=== PATIENT | female | born 1975 | race American Indian/Alaskan Native ===

== ENCOUNTER 2018-04-05 09:31 | Day surgery (SDC) | payer BC ==
[2018-04-05] MEDS ORDERED: DEMEROL IV PRN (09:50)
[2018-04-05] MEDS ORDERED: DILAUDID IV PRN (09:50)
[2018-04-05] MEDS ORDERED: ZOFRAN IV PRN (09:50)
[2018-04-05] MEDS ORDERED: VERSED IV NR (10:00)
[2018-04-05] MEDS ORDERED: LACTATED RINGERS 1,000 ML IV SCH ×2 (10:00→12:00)
--- NOTE | 2018-04-05 10:28 | Anesthesia Consultation ---
Anesthesia Consult and Med Hx Date of service: 04/05/18 - Airway Anesthetic Teeth Evaluation: Good ROM Head & Neck: Adequate Mental/Hyoid Distance: Adequate Mallampati Class: Class II - Pulmonary Exam CTA: Yes - Cardiac Exam Cardiac Exam: RRR - Pre-Operative Health Status ASA Pre-Surgery Classification: ASA3 Proposed Anesthetic Plan: General - Pre-Anesthesia Comment Pre-Anesthesia Comments: cardiomyopathy/ has been cleared/ etomidate or low dose propofol induction - Cardiovascular System Hx Heart Murmur: Yes (post cardiomyopathy 5 years ago/no meds) - Central Nervous System Hx Psychiatric Problems: No - Other Systems Hx Alcohol Use: Yes (Occas) Hx Cancer: No
--- NOTE | 2018-04-05 10:29 | Anesthesia Day of Surgery ---
Anesthesia Day of Surgery - Day of Surgery Patient Examined: Yes Patient H&P Reviewed: Yes Patient is NPO: Yes Beta Blockers: No Cardiac Clearance: No Pulmonary Clearance: No
--- NOTE | 2018-04-05 10:38 | History and Physical Report ---
History of Present Illness Date of examination: 04/05/18 Date of admission: 04/05/2018 Chief complaint: tubal ligation History of present illness: Pt presents for tubal ligation. All risk, benefits,and alternatives were d/w pt and questions were addressed and answered. Consent forms signed in the office for pt to present on day of surgery. Visit Type: Pre-Op Primary Provider: Lita Grady MD CC: no complaints. History of Present Illness: pt presents for pre op visit BTL, and Discuss IUD removal.....mariela All risk/benefits/alternatives were d/w pt and questions were addressed and answered. Consents signed and given to pt to present on day of surgery. Vital Signs: Patient Profile: 42 Years Old Female Height: 60.5 inches (153.67 cm) Weight: 151 pounds BMI: 29.00 BP sittin / 80 (left arm) Current Method of Contraception: IUD [OB-New Pt-Past Preg Hx-CCC] SENIOR MAINFRAME PROGRAMMER ANALYST History Uterine Surgery (not C/S): negative Operations: Negative Past Surgical History teeth Denies any prior history of complications from anesthesia. Abnormal PAP: positive, colpo nl pap here 03/2012 Uterine Anomaly: negative CARO Exposure: negative Infertility: negative Infection History HIV Risk Eval: no Personal hx. of genital herpes: no Partner hx. of genital herpes: no Hx of STD: none Active Medications (reviewed today): MIRENA (52 MG) 20 MCG/24HR INTRAUTERINE INTRAUTERINE DEVICE (LEVONORGESTREL) Current Allergies (reviewed today): No known allergies Past Medical History: Reviewed history from 11/09/2012 and no changes required: Heart murmur denies any problems Past Surgical History: Reviewed history from 11/09/2012 and no changes required: Negative Past Surgical History teeth Denies any prior history of complications from anesthesia. Family History Summary: Reviewed history Last on 06/11/2016 and no changes required:04/05/2018 General Comments - FH: No Family History of Breast Cancer No Family History of Colon Cancer No Family History of Ovarian Cancer No Family History of DVT/PE on OCP Social History: Reviewed history from 05/29/2015 and no changes required: Patient is single Smoking History: Patient has never smoked. Risk Factors: Smoked Tobacco Use: Never smoker Smokeless Tobacco Use: Never Drug use: no HIV high-risk behavior: no Alcohol use: no Exercise: yes Seatbelt use: 100 % [[facility]] [Labs In-House] Physical Exam Appearance: well developed, well nourished, no acute distress Other Exams Breast exam: no masses or nipple discharge Abdomen: soft, non-tender, no masses, bowel sounds normal Skin: no ulcers, xanthomas Lymph: no cervical, axillary, or inguinal adenopathy Extremities: normal alignment, no joint enlargement, crepitus, masses or tenderness; normal tone and strength Genitourinary Exam Vulva: normal, no lesions or discharge Urethral meatus: normal size and location, no lesions or discharge Urethra: no discharge Bladder: no cystocele Vagina: normal appearance, no discharge, lesions. No evidence of cystocele or rectocele. Cervix: normal appearance, no lesions, no discharge Uterus: normal position, midline, mobile Past History Past Medical History: other (see hpi) Past Surgical History: other (see hpi) SENIOR MAINFRAME PROGRAMMER ANALYST History: other (see hpi) Family/Genetic History: other (see hpi) Social history: other (see hpi) - Obstetrical History : 3 Medications and Allergies Allergies Allergy/AdvReac Type Severity Reaction Status Date / Time No Known Allergies Allergy Unverified 04/03/18 16:07 Home Medications Medication Instructions Recorded Confirmed Last Taken Type No Known Home Medications [No 03/27/18 04/03/18 Unknown History Reported Home Medications] Active Meds: Active Medications Hydromorphone HCl (Dilaudid) 0.5 mg IV Q10MIN PRN PRN Reason: Pain , Severe (7-10) Stop: 04/05/18 20:00 Lactated Ringer's (Lactated Ringers) 1,000 mls @ 100 mls/hr IV DIRECT ROSS Lactated Ringer's (Lactated Ringers) 1,000 mls @ 100 mls/hr IV DIRECT ROSS Meperidine HCl (Demerol) 25 mg IV ONCE PRN PRN Reason: Shivering Stop: 04/05/18 20:00 Midazolam HCl (Versed) 2 mg IV PREOP NR Stop: 04/05/18 23:59 Ondansetron HCl (Zofran) 4 mg IV ONCE PRN PRN Reason: Nausea And Vomiting Stop: 04/05/18 20:00 - Physical Exam Cardiovascular: Normal S1, Normal S2 Lungs: Positive: Normal air movement Abdomen: Positive: normal appearance, soft. Negative: distention, tenderness, guarding Genitourinary (Female): Positive: other (deferred unitl EUA) Results All other labs normal. Assessment and Plan - Patient Problems (1) Sterilization Current Visit: Yes Status: Acute Plan to address problem: -admit -bilateral tubal ligation
[2018-04-05] MEDS ORDERED: DIPRIVAN 10 MG/ML IV ONE (11:00)
[2018-04-05] MEDS ORDERED: ZEMURON IV ONE (11:00)
[2018-04-05] MEDS ORDERED: TORADOL ONE (11:00)
[2018-04-05] MEDS ORDERED: ANCEF/STERILE WATER 2 GM/20 ML 2 GM/20 ML SYRINGE IV NR (11:00)
[2018-04-05] MEDS ORDERED: XYLOCAINE MPF 2% ONE (11:00)
[2018-04-05] MEDS ORDERED: ROBINUL ONE (11:00)
[2018-04-05] MEDS ORDERED: DECADRON ONE (11:00)
[2018-04-05] MEDS ORDERED: ZOFRAN ONE (11:00)
[2018-04-05] MEDS ORDERED: BLOXIVERZ ONE (11:00)
[2018-04-05] MEDS ORDERED: SUBLIMAZE ONE (11:04)
[2018-04-05] MEDS ORDERED: MARCAINE 0.5% INFILTRATI ONE ×2 (12:10→12:40)
[2018-04-05] MEDS ORDERED: AMIDATE IV ONE (12:45)
--- NOTE | 2018-04-05 12:54 | Operative Report ---
Operative Report Operative Report: Date of procedure: 04/05/2018 Pre-operative diagnosis: Desires permanent sterilization Post-operative diagnosis: Same Procedure name(s): Laparoscopic bilateral salpingectomy Removal of Mirena IUD Lysis of adhesions Surgeon: Dr. Grijalva Invoicing Specialist: Certified surgical scrub health information assistant Anesthesia: Gen. endotracheal anesthesia EBL: Minimal Urine output: 150 mL of urine out prior to the onset of procedure via straight catheterization clear urine. Fluids: 550 mL Findings: Grossly normal fallopian tubes and ovaries bilaterally. Adhesions of the omentum to the anterior uterus and right adnexa. Adhesions of the left adnexa to the posterior portion of the uterus. Indications: Patient desires from sterilization and removal of intrauterine device. All risks benefits and alternatives were discussed with the patient. Consents were signed and placed on the chart. Procedure: Patient was taken to the operating room and which she was placed under general endotracheal anesthesia. Patient was then prepped and draped in sterile fashion and placed in dorsal lithotomy position in Rosalio stirrups. Her catheterization was done with clear urine noted. Attention was then turned to the vagina in which a Humi uterine manipulator was placed. Attention was then turned to the umbilicus and which an infraumbilical incision was made with the scalpel 5mm trocar was placed using direct visualization with the camera. Abdomen was then insufflated with gas. Under direct visualization a second 8 mm trocar and an additional 5 mm trocar were placed in the left lower abdomen. Filmy adhesions of the left adnexa to the posterior portion of the uterus were lysed using the LigaSure device. The left fallopian tube was then grasped with the grasper was elevated cauterized and transected using the LigaSure device. Portion of the left fallopian tube was passed off to pathology. Attention was then turned to the right fallopian tube with the procedure was then repeated. The filmy adhesions of the omentum to the right adnexa were lysed with excellent hemostasis noted. Portion of the right fallopian tube was passed off to pathology. After tubal ligation was completed all instruments were removed from the abdomen under direct visualization. All gas was also released from the abdomen. The subcuticular fat was reapproximated with 2-0 Vicryl. The skin was approximated with 4-0 Monocryl in a subcuticular stitch. The patient tolerated procedure well. Sponge, lap, and needle counts were all correct x3 the patient was taken to the recovery room awake and in stable condition.
--- NOTE | 2018-04-05 12:55 | Discharge Summary ---
Providers - Providers Date of discharge: 04/05/18 Attending physician: ISA ALLEN Primary care physician: BOXING MACHINE OPERATOR Hospitalization Reason for admission: other (laparoscopic tuba ligation) Procedure: other (laparoscopic tubal ligation) Procedure details: See operative report Incision: dry, intact Discharge diagnosis: other (status post removal of Mirena IUD; status post bilateral salpingectomy) Hospital course: Patient was admitted for above-stated procedure. Once the structures criteria had been met in the PACU patient was discharged home. Patient will follow-up in office in 1 week for postop evaluation. Prescriptions were placed on the chart for discharge. Condition at discharge: Good Disposition: DC-01 TO HOME OR SELFCARE - Discharge Diagnoses (1) Sterilization Status: Acute Plan - Discharge Medications Prescriptions: Ibuprofen 800 mg PO Q6HR #30 tablet oxyCODONE /ACETAMINOPHEN [Percocet 5/325] 1 tab PO Q4HR #30 tab - Provider Discharge Summary Activity: routine, no sex for 6 weeks, no heavy lifting 4 weeks Diet: routine Instructions: routine Additional instructions: [] Smoking cessation referral if applicable(refer to patient education folder for contact #) [] Refer to [facility] Booklet Call your doctor immediately for: * Fever > 100.5 * Heavy vaginal bleeding ( >1 pad per hour) * Severe persistent headache * Shortness of breath * Reddened, hot, painful area to leg or breast * Drainage or odor from incision. * Keep incision clean and dry at all times and follow doctor's instructions regarding bathing/showering - Follow up plan Follow up: PRIMARY CARE, [Primary Care Provider] - 7 Days
--- NOTE | 2018-04-05 13:24 | Post Anesthesia Evaluation ---
- Post Anesthesia Evaluation Patient Participated: Yes Airway Patent: Yes Stable Respiratory Function: Yes Nausea/Vomiting: No Temp > 96.8F: Yes Pain Manageable: Yes Adequeate Hydration: Yes Anesthesia Complications: No Block Receding Appropriately: Not Applicable Patient on Ventilator: No
[2018-04-05 14:02] VITALS: BP 124/64
== END 2018-04-05 09:32 | disposition home or self-care (01) ==
LOC: OR 09:31
PROVIDERS: ATTEND Obstetrics & Gynecology
DX: Z30.2 Encounter for sterilization (principal); Z30.432 Encounter for removal of intrauterine contraceptive device; N83.8 Other noninflammatory disorders of ovary, fallopian tube and broad ligament; N73.6 Female pelvic peritoneal adhesions (postinfective); I50.9 Heart failure, unspecified; I42.9 Cardiomyopathy, unspecified; Z79.899 Other long term (current) drug therapy; Z72.89 Other problems related to lifestyle; Z98.890 Other specified postprocedural states
CPT/HCPCS: 58301; 58670; 81025; 88302; J0690; J1100; J1170; J1885; J2250; J2405; J2704; J2710; J3010; J7120

== ENCOUNTER 2019-08-10 15:09 | Outpatient (CLI) | payer BC ==
--- NOTE | 2019-08-10 15:48 | Mammography Report ---
DIGITAL SCREENING MAMMOGRAM WITH CAD, 08/10/2019 INDICATION: Routine screening mammography. TECHNIQUE: Digital bilateral 2D mammography was obtained in the craniocaudal and mediolateral obliq ue projections. This examination was interpreted with the benefit of Computer-Aided Detection analysi s. COMPARISON: None. This is a baseline mammogram. FINDINGS: Breast Density: The breasts are heterogeneously dense, which may obscure small masses. There is no evidence of dominant mass, suspicious calcifications or architectural distortion in eithe r breast. IMPRESSION: No mammographic evidence of malignancy. Follow up recommendation: Routine yearly BI-RADS Category 1: Negative. A "normal" or negative report should not discourage follow up or biopsy of a clinically significant f inding. A written summary of these findings will be mailed to the patient. The patient will be entered into a mammography reporting system which will generate a reminder letter for the patient's next appointmen t at the appropriate interval. The [employer] recommends yearly mammograms starting at age 40 and continuing as l azael as a woman is in good health. Breast MRI is recommended for women with an approximate 20-25% or greater lifetime risk of breast cancer, including women with a strong family history of breast or ova ryan cancer or who have been treated for Hodgkin's disease. Signer Name: Jai Alexander MD Signed: 08/10/2019 3:44 PM Workstation Name: [id number]
== END 2019-08-10 15:10 | disposition home or self-care (01) ==
LOC: SPVWC 15:09
PROVIDERS: ATTEND Obstetrics & Gynecology
DX: Z12.31 Encounter for screening mammogram for malignant neoplasm of breast (principal)
CPT/HCPCS: 77067

== ENCOUNTER 2020-10-03 11:33 | Outpatient (CLI) | payer BC ==
--- NOTE | 2020-10-06 09:45 | Mammography Report ---
DIGITAL SCREENING MAMMOGRAM WITH CAD, 10/06/2020 INDICATION: Routine screening mammography. TECHNIQUE: Digital bilateral 2D mammography was obtained in the craniocaudal and mediolateral obliq ue projections. This examination was interpreted with the benefit of Computer-Aided Detection analysi s. COMPARISON: 08/10/2019 FINDINGS: Breast Density: There are scattered areas of fibroglandular density. There is no evidence of dominant mass, suspicious calcifications or architectural distortion in eithe r breast. IMPRESSION: Follow up recommendation: Routine yearly BI-RADS Category 1: Negative. A "normal" or negative report should not discourage follow up or biopsy of a clinically significant f inding. A written summary of these findings will be mailed to the patient. The patient will be entered into a mammography reporting system which will generate a reminder letter for the patient's next appointmen t at the appropriate interval. The [employer] recommends yearly mammograms starting at age 40 and continuing as l azael as a woman is in good health. Breast MRI is recommended for women with an approximate 20-25% or greater lifetime risk of breast cancer, including women with a strong family history of breast or ova ryan cancer or who have been treated for Hodgkin's disease. Signer Name: Yogesh Riggins MD Signed: 10/06/2020 9:41 AM Workstation Name: [id number]
== END 2020-10-03 11:34 | disposition home or self-care (01) ==
LOC: SPVWC 11:33
PROVIDERS: ATTEND Obstetrics & Gynecology
DX: Z12.31 Encounter for screening mammogram for malignant neoplasm of breast (principal)
CPT/HCPCS: 77067